=== PATIENT | male | born 1985 | race Two or more races ===

== ENCOUNTER 2018-05-09 14:29 | Outpatient (CLI) | payer OTHER | END 2018-05-09 14:30 | disposition home or self-care (01) | LOC: SC 14:29 | PROVIDERS: ATTEND Internal Medicine Pulmonary Disease | DX: G47.30 Sleep apnea, unspecified (principal); G47.10 Hypersomnia, unspecified; R06.83 Snoring; G47.8 Other sleep disorders | CPT/HCPCS: 99203; 99212 ==

== ENCOUNTER 2018-05-22 19:46 | Outpatient (CLI) | payer OTHER | END 2018-05-22 19:47 | disposition home or self-care (01) | LOC: SC 19:46 | PROVIDERS: ATTEND Internal Medicine Pulmonary Disease | DX: R00.1 Bradycardia, unspecified (principal); R51 Headache; G47.8 Other sleep disorders | CPT/HCPCS: 95810 ==

== ENCOUNTER 2018-06-03 11:15 | Outpatient (CLI) | payer OTHER | END 2018-06-03 11:16 | disposition home or self-care (01) | LOC: SC 11:15 | PROVIDERS: ATTEND Nurse Practitioner Family | DX: R06.83 Snoring (principal); R00.1 Bradycardia, unspecified | CPT/HCPCS: 99212; 99214 ==